=== PATIENT | male | born 1980 | race Caucasian/White ===

== ENCOUNTER 2022-01-16 23:00 | Emergency (ER) | payer OTHER ==
[~2022-01-16] VITALS: Ht 185.4 cm; Wt 103.5 kg
== END 2022-01-17 00:53 | disposition home or self-care (01) ==
LOC: ED 23:00
DX: R10.9 Unspecified abdominal pain (principal); N20.0 Calculus of kidney
CPT/HCPCS: 36415; 74176; 80053; 81001; 85025; 96374; 96375; 99284-25; J1885; J2405; J7030

== ENCOUNTER 2022-02-27 17:24 | Emergency (ER) | payer OTHER ==
[~2022-02-27] VITALS: Ht 185.4 cm; Wt 97.5 kg
[2022-02-27] MEDS ORDERED: VISTARIL25 MG PO (20:01)
[2022-02-27] MEDS ORDERED: LISINOPRIL5 MG PO (20:01)
[2022-02-27] MEDS ORDERED: PREDNISONE20 MG PO (20:06)
[2022-02-27] MEDS ORDERED: DOXYCYCLINE HY100 MG PO (20:06)
== END 2022-02-27 20:29 | disposition home or self-care (01) ==
LOC: ED 17:24
DX: L30.9 Dermatitis, unspecified (principal); Z79.899 Other long term (current) drug therapy
CPT/HCPCS: 99282; A9270; J7512

== ENCOUNTER 2024-03-20 19:13 | Emergency (ER) | payer OTHER ==
[~2024-03-20] VITALS: Ht 185.4 cm; Wt 104.0 kg
[~2024-03-20 19:13] MED LIST: DOXYCYCLINE HY100 MG PO; LISINOPRIL5 MG PO; PREDNISONE20 MG PO; VISTARIL25 MG PO
[2024-03-20] MEDS ORDERED: HYDROCHLOROTHIA25 MG PO (19:23)
[2024-03-20] MEDS ORDERED: VERAPAMIL ER120 M1 PO (19:23)
[2024-03-20] MEDS ORDERED: FLECAINIDE ACE100 MG PO (19:23)
[2024-03-20] MEDS ORDERED: ELIQUIS5 MG PO (19:23)
[2024-03-20] MEDS ORDERED: POTASSIUM CHLO20 ME1 PO (19:23)
[2024-03-20] MEDS ORDERED: MORPHINE SULFATE 4 MG/ML VIAL IV ONE (19:30)
[2024-03-20] MEDS ORDERED: ASPIRIN 325 MG TAB PO ONE (19:30)
[2024-03-20] MEDS ORDERED: NITROGLYCERIN PACKET TOP ONE (19:30)
[2024-03-20 19:40] LABS: BASOPHILS 0.2 % (0-2); EOSINOPHILS 0.3 % (0-6); HEMATOCRIT 49.5 % (35.0-50.0); HEMOGLOBIN 17.5 g/dL (12.0-18.0); LYMPHOCYTES 17.8 % (24-44); MCH 31.1 (27-36); MCHC 35.4 g/dl (30-36); MCV 87.7 fl (81-99); MONOCYTES 8.2 % (0-12); NEUTROPHILS 73.5 % (39-80); PLATELET COUNT 326 K/uL (140-440); RBC 5.65 M/ul (4.3-5.7); RDW 13.1 (10.5-15.0)
[2024-03-20 19:42] LABS: INR 0.96 (0.80-1.30); PROTIME 12.1 Sec (11.2-14.2)
[2024-03-20 19:50] LABS: ALBUMIN 4.3 g/dL (3.4-5.0); ALBUMIN/GLOBULIN RATIO 1.02 (1.1-2.4); ANION GAP 15.9 (7-21); BILIRUBIN, TOTAL 1.1 ng/dL (0.2-1.0); BUN/CREATININE RATIO 11.84 (6.0-28.6); CREATININE, SERUM 1.52 mg/dL (0.70-1.30); MAGNESIUM 1.9 mg/dL (1.8-2.4); POTASSIUM 2.9 mmol/L (3.5-5.1); PROTEIN, TOTAL 8.5 g/dL (6.4-8.2)
[2024-03-20] MEDS ORDERED: POTASSIUM CHLORIDE 10 MEQ TABCR PO ONE (20:15)
[2024-03-20] MEDS ORDERED: CYCLOBENZAPRINE10 MG PO (21:05)
[2024-03-20 21:15] VITALS: BP 138/89
[2024-03-20] MEDS ORDERED: LORazepam 1 MG HOME.PACK PO ONE (21:15)
--- NOTE | 2024-03-23 12:14 | EKG ---
[facility] [address] [facility] [place], [place] [address] \T\ T wave abnormality, consider inferior ischemia ST \T\ T wave abnormality, consider anterolateral ischemia Abnormal ECG No previous ECGs available Confirmed by Piedad Ch MD ([id number]) on 03/23/2024 12:14:31 PM Electronically Signed By: PIEDAD CH DO 03/23/24 1214 PATIENT NAME: DIVINE COATS Electrocardiogram DATE OF : 80 PHYSICIAN: PIEDAD CH DO REPORT #: [id number] REPORT IS CONFIDENTIAL AND NOT TO BE RELEASED WITHOUT AUTHORIZATION
== END 2024-03-20 21:15 | disposition home or self-care (01) ==
LOC: ED 19:13
PROVIDERS: Family Medicine
DX: R07.89 Other chest pain (principal); I10 Essential (primary) hypertension; Z88.8 Allergy status to other drugs, medicaments and biological substances; Z79.01 Long term (current) use of anticoagulants; Z79.899 Other long term (current) drug therapy
CPT/HCPCS: 36415; 75635; 80053; 83735; 84484; 85025; 85379; 85610; 93005; 93010; 96374; 99285-25; A9270; J2270; Q9967

== ENCOUNTER 2024-03-28 23:08 | Emergency (ER) | payer OTHER ==
[~2024-03-28] VITALS: Ht 185.4 cm; Wt 106.4 kg
[~2024-03-28 23:08] MED LIST changes: +CYCLOBENZAPRINE10 MG PO; +ELIQUIS5 MG PO; +FLECAINIDE ACE100 MG PO; +HYDROCHLOROTHIA25 MG PO; +POTASSIUM CHLO20 ME1 PO; +VERAPAMIL ER120 M1 PO
--- OUTSIDE RECORDS SUMMARY | 2024-03-28 23:14 | XMS ---
PreManage Notification: [employer] Security Presser Machine Events No recent Security Events currently on file CRITERIA MET - [facility] - 2 Visits in 30 Days CARE PROVIDERS -, [facility] Dentist: Junior Graphic Designer Current [place] PHONE: [phone] [facility] has no Care Guidelines for this patient. ERobbie VISIT COUNT (12 MO.) 2 [facility] TOTAL 2 NOTE: Visits indicate total known visits. ED/UCC VISIT TRACKING (12 MO.) 03/28/2024 23:08 [facility] TYPE: Emergency COMPLAINT: - HEAD INJURY 2024 19:13 [facility] TYPE: Emergency COMPLAINT: - CHEST PAIN DIAGNOSES: - Allergy status to other drugs, medicaments and biological substances - Chest pain, unspecified - Essential (primary) hypertension - termite exterminator helper (current) use of anticoagulants - Other chest pain - Other parts counterman (current) drug therapy INPATIENT VISIT TRACKING (12 MO.) No inpatient visits to display in this time frame [email or web address]
[2024-03-28 23:44] LABS: HEMOGLOBIN 17.6 g/dL (12.0-18.0); MCV 88.7 fl (81-99)
[2024-03-28 23:47] LABS: BASOPHILS 0.3 % (0-2); EOSINOPHILS 0.9 % (0-6); HEMATOCRIT 51.1 % (35.0-50.0); LYMPHOCYTES 34.7 % (24-44); MCH 30.6 (27-36); MCHC 34.5 g/dl (30-36); MONOCYTES 11.6 % (0-12); NEUTROPHILS 52.5 % (39-80); PLATELET COUNT 285 K/uL (140-440); RBC 5.76 M/ul (4.3-5.7); RDW 13.4 (10.5-15.0)
[2024-03-28 23:52] LABS: ALBUMIN 4.2 g/dL (3.4-5.0); ANION GAP 12.2 (7-21); BILIRUBIN, TOTAL 0.7 ng/dL (0.2-1.0); BUN/CREATININE RATIO 7.87 (6.0-28.6); CALCIUM 9.8 mg/dL (8.5-10.1); CREATININE, SERUM 1.27 mg/dL (0.70-1.30); POTASSIUM 3.2 mmol/L (3.5-5.1); PROTEIN, TOTAL 8.4 g/dL (6.4-8.2)
[2024-03-29 01:39] VITALS: BP 109/76
--- NOTE | 2024-03-30 11:33 | EKG ---
[facility] [address] [facility] [place] [address] Signed Normal sinus rhythm Nonspecific intraventricular conduction delay Borderline ECG When compared with ECG of 20-MAR-2024 19:18, ST no longer depressed in Anterior leads T wave inversion no longer evident in Inferior leads T wave inversion no longer evident in Anterolateral leads Confirmed by Erin Dorantes MD ([id number]) on 03/30/2024 11:33:14 AM Electronically Signed By: ERIN DORANTES MD 03/30/24 1133 PATIENT NAME: DIVINE COATS Electrocardiogram DATE OF : 80 PHYSICIAN: ERIN DORANTES MD REPORT #: [id number] REPORT IS CONFIDENTIAL AND NOT TO BE RELEASED WITHOUT AUTHORIZATION
== END 2024-03-29 01:42 | disposition home or self-care (01) ==
LOC: ED 23:08
PROVIDERS: Emergency Medicine
DX: R55 Syncope and collapse (principal); S09.90XA Unspecified injury of head, initial encounter; I48.0 Paroxysmal atrial fibrillation; I10 Essential (primary) hypertension; K74.60 Unspecified cirrhosis of liver; Z87.442 Personal history of urinary calculi; Z98.890 Other specified postprocedural states; Z88.8 Allergy status to other drugs, medicaments and biological substances; Z79.899 Other long term (current) drug therapy; Z79.02 Long term (current) use of antithrombotics/antiplatelets; W19.XXXA Unspecified fall, initial encounter
CPT/HCPCS: 36415; 70450; 72125; 80053; 85025; 93005; 93010; 99284-25

== ENCOUNTER 2024-05-31 12:13 | Emergency (ER) | payer OTHER ==
[~2024-05-31] VITALS: Ht 185.4 cm; Wt 102.1 kg
[2024-05-31] MEDS ORDERED: APIXABAN 5 MG TAB PO SCH (13:00)
[2024-05-31] MEDS ORDERED: FLECAINIDE ACETATE 50 MG TAB PO SCH (13:01)
[2024-05-31 13:28] LABS: AMPHETAMINES, URINE NEGATIVE (NEGATIVE); BARBITURATES, URINE NEGATIVE (NEGATIVE); BENZODIAZEPINE, URINE NEGATIVE (NEGATIVE); BUPRENORPHINE, URINE NEGATIVE (NEGATIVE); CANNABINOID, URINE NEGATIVE (NEGATIVE); COCAINE, URINE NEGATIVE (NEGATIVE); ECSTASY, URINE NEGATIVE (NEGATIVE); FENTANYL, URINE NEGATIVE (NEGATIVE); METHADONE, URINE NEGATIVE (NEGATIVE); OPIATES, URINE NEGATIVE (NEGATIVE); OXYCODONE, URINE NEGATIVE (NEGATIVE); PHENCYCLIDINE, URINE NEGATIVE (NEGATIVE)
[2024-05-31 13:35] LABS: HEMOGLOBIN 14.9 g/dL (12.0-18.0); MCV 88.6 fl (81-99)
[2024-05-31 13:38] LABS: BASOPHILS 0.1 % (0-2); EOSINOPHILS 2.4 % (0-6); HEMATOCRIT 42.9 % (35.0-50.0); LYMPHOCYTES 10.3 % (24-44); MCH 30.8 (27-36); MCHC 34.8 g/dl (30-36); MONOCYTES 7.3 % (0-12); NEUTROPHILS 79.9 % (39-80); PLATELET COUNT 339 K/uL (140-440); RBC 4.84 M/ul (4.3-5.7); RDW 14.1 (10.5-15.0)
[2024-05-31 14:02] LABS: ACETAMINOPHEN 0 ug/mL (10-30); ALBUMIN/GLOBULIN RATIO 1.11 (1.1-2.4); ALCOHOL, MEDICAL <3 ng/dL (<3); ALKALINE PHOSPHATASE 92 U/L (46-116); ALT (SGPT) 49 U/L (14-59); ANION GAP 14.1 (7-21); AST (SGOT) 21 U/L (15-37); BILIRUBIN, TOTAL 1.4 ng/dL (0.2-1.0); BUN/CREATININE RATIO 6.79 (6.0-28.6); CALCIUM 9.4 mg/dL (8.5-10.1); CARBON DIOXIDE 27 mmol/L (21-32); CHLORIDE 105 mmol/L (98-107); CREATININE, SERUM 1.03 mg/dL (0.70-1.30); GLOMERULAR FILTRATION RATE,EST 92 mL/min (>60); POTASSIUM 3.1 mmol/L (3.5-5.1); PROTEIN, TOTAL 7.6 g/dL (6.4-8.2); TSH, 3RD GENERATION 1.215 uIU/mL (0.358-3.740); UREA NITROGEN 7 mg/dL (7-18)
[2024-05-31 14:03] LABS: SALICYLATE < 0.2 mg/dL (2.8-20.0)
[2024-05-31] MEDS ORDERED: FAMOTIDINE 20 MG TAB PO SCH (21:00)
[2024-05-31] MEDS ORDERED: TRAZODONE HCL 100 MG TAB PO SCH (21:00)
[2024-05-31] MEDS ORDERED: ondansetron HCL 4 MG TAB PO ONE (21:30)
[2024-06-01] MEDS ORDERED: ONDANSETRON 4 MG TAB ODT SL ONE (05:00)
[2024-06-01] MEDS ORDERED: LIDOCAINE & ANTACID 35 ML BTL PO ONE (05:00)
[2024-06-01 08:58] VITALS: BP 130/81
== END 2024-06-01 08:58 | disposition home or self-care (01) ==
LOC: ED 12:13
PROVIDERS: Emergency Medicine
DX: R45.851 Suicidal ideations (principal); I10 Essential (primary) hypertension; I48.91 Unspecified atrial fibrillation; Z91.148 Patient's other noncompliance with medication regimen for other reason; Z88.8 Allergy status to other drugs, medicaments and biological substances; Z79.01 Long term (current) use of anticoagulants; Z79.899 Other long term (current) drug therapy
CPT/HCPCS: 36415; 80053; 80307; 84443; 85025; 93005; 93010; 99285; A9270; G0480

== ENCOUNTER 2024-08-09 12:42 | Emergency (ER) | payer OTHER ==
[~2024-08-09] VITALS: Ht 185.4 cm; Wt 107.0 kg
[~2024-08-09 12:42] MED LIST changes: +OMEPRAZOLE20 MG PO
[2024-08-09 13:06] LABS: BASOPHILS 0.2 % (0-2); EOSINOPHILS 2.4 % (0-6); HEMATOCRIT 44.9 % (35.0-50.0); HEMOGLOBIN 16.1 g/dL (12.0-18.0); LYMPHOCYTES 19.9 % (24-44); MCH 31.3 (27-36); MCHC 35.8 g/dl (30-36); MCV 87.4 fl (81-99); MONOCYTES 9.4 % (0-12); NEUTROPHILS 68.1 % (39-80); PLATELET COUNT 328 K/uL (140-440); RBC 5.14 M/ul (4.3-5.7); RDW 13.1 (10.5-15.0)
[2024-08-09 13:17] LABS: ALBUMIN 3.6 g/dL (3.4-5.0); ALBUMIN/GLOBULIN RATIO 1.03 (1.1-2.4); ALCOHOL, MEDICAL <3 ng/dL (<3); ALKALINE PHOSPHATASE 121 U/L (46-116); ALT (SGPT) 59 U/L (14-59); AST (SGOT) 29 U/L (15-37); BILIRUBIN, TOTAL 0.7 mg/dL (0.2-1.0); CALCIUM 8.2 mg/dL (8.5-10.1); CARBON DIOXIDE 28 mmol/L (21-32); CHLORIDE 104 mmol/L (98-107); GLOMERULAR FILTRATION RATE,EST 95 mL/min (>60); PROTEIN, TOTAL 7.1 g/dL (6.4-8.2); UREA NITROGEN 5 mg/dL (7-18)
[2024-08-09] MEDS ORDERED: POTASSIUM CHLORIDE 10 MEQ TABCR PO ONE ×3 (13:30→20:00)
[2024-08-09] MEDS ORDERED: POTASSIUM CHLORIDE 10 MEQ/100 ML BAG IV SCH ×2 (13:45→14:45)
[2024-08-09] MEDS ORDERED: LANTUS100 UNITS/ SUB-Q (14:42)
[2024-08-09] MEDS ORDERED: OZEMPIC1 MG/0.71 SUB-Q (14:42)
[2024-08-09] MEDS ORDERED: PRAZOSIN HCL1 MG PO (14:43)
[2024-08-09] MEDS ORDERED: CITALOPRAM HBR10 MG PO (14:46)
[2024-08-09] MEDS ORDERED: D3 DOTS50 MCG PO (14:47)
[2024-08-09] MEDS ORDERED: JARDIANCE25 MG PO (14:47)
[2024-08-09] MEDS ORDERED: RINVOQ ER15 MG PO (14:48)
[2024-08-09] MEDS ORDERED: LYRICA150 MG PO (14:48)
[2024-08-09] MEDS ORDERED: DILTIAZEM 24HR120 MG PO (14:52)
[2024-08-09] MEDS ORDERED: HYDROXYZINE HCL25 MG PO (14:54)
[2024-08-09] MEDS ORDERED: SODIUM CHLORIDE 0.9% 1,000 ML IV ONE (16:00)
[2024-08-09 19:29] LABS: ANION GAP 10.7 (7-21); BUN/CREATININE RATIO 3.96 (6.0-28.6); CREATININE, SERUM 1.01 mg/dL (0.70-1.30); POTASSIUM 2.7 mmol/L (3.5-5.1)
[2024-08-09] MEDS ORDERED: LOMOTIL TABLET1 EACH PO (19:48)
[2024-08-09 20:12] VITALS: BP 156/94
== END 2024-08-09 20:12 | disposition home or self-care (01) ==
LOC: ED 12:42
PROVIDERS: Emergency Medicine
DX: S09.90XA Unspecified injury of head, initial encounter (principal); E87.6 Hypokalemia; I10 Essential (primary) hypertension; I48.91 Unspecified atrial fibrillation; W01.0XXA Fall on same level from slipping, tripping and stumbling without subsequent striking against object, initial encounter; Z79.4 Long term (current) use of insulin; Z79.899 Other long term (current) drug therapy; Z88.8 Allergy status to other drugs, medicaments and biological substances
CPT/HCPCS: 36415; 70450; 73552; 80048; 80053; 83735; 85025; 93971; 96365; 96366; 99284-25; A9270; G0480; J3480; J7030